=== PATIENT | female | born 1970 | race Caucasian/White ===

== ENCOUNTER 2017-05-07 20:41 | Emergency (ER) | payer SELFPAY ==
[2017-05-07 21:18] LABS: BASOPHILS # (AUTO) 0.1 10^3/uL (0.0-0.1); BASOPHILS % (AUTO) 0.5 %; EOSINOPHILS # (AUTO) 0.2 10^3/uL (0.0-0.7); EOSINOPHILS % (AUTO) 2.5 %; HGB - HEMOGLOBIN 7.9 g/dL (12.0-16.0); LYMPHOCYTES % (AUTO) 20.5 %; MEAN CORPUSCULAR HEMOGLOBIN 18.5 pg (27.0-31.0); MEAN CORPUSCULAR HGB CONC 29.1 g/dL (32.0-36.0); MEAN CORPUSCULAR VOLUME 63.6 fL (81.0-99.0); MEAN PLATELET VOLUME 7.8 fL (7.9-10.8); MONOCYTES # (AUTO) 0.8 10^3/uL (0.0-1.0); MONOCYTES % (AUTO) 8.5 %; NEUTROPHILS # (AUTO) 6.8 10^3/uL (1.5-6.6); RED BLOOD COUNT 4.25 10^6/uL (4.20-5.40); RED CELL DISTRIBUTION WIDTH 19.8 % (12.0-15.0)
[2017-05-07 21:25] LABS: ALBUMIN/GLOBULIN RATIO 0.9 (1.0-2.2); BILIRUBIN,TOTAL < 0.2 mg/dL (0.2-1.0); BUN - BLOOD UREA NITROGEN < 5 mg/dL (6-20); CALCIUM 8.3 mg/dL (8.5-10.3); CARBON DIOXIDE - CO2 23 mmol/L (21-32); CHLORIDE 103 mmol/L (101-111); CREATININE 0.5 mg/dL (0.4-1.0); GFR - MDRD 133 (>89); GLUCOSE 108 mg/dL (70-100); LIPASE 35 U/L (22-51); POTASSIUM 3.3 mmol/L (3.5-5.0); SODIUM 138 mmol/L (135-145); TOTAL PROTEIN 7.4 g/dL (6.7-8.2)
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
[2017-05-07] MEDS: KETOROLAC 60 MG/2 ML VIAL IM STA (22:38)
[2017-05-07] MEDS: ONDANSETRON ODT 4 MG TABLET TL STA (22:38)
[2017-05-07] MEDS ORDERED: KETOROLAC 60 MG/2 ML VIAL ONE (22:40)
[2017-05-07] MEDS ORDERED: ONDANSETRON ODT 4 MG TABLET ONE (22:40)
[2017-05-07] MEDS: ONDANSETRON ODT 4 MG Prepack 2 TL PRN (22:41)
[2017-05-07 22:43] VITALS: BP 134/67
[2017-05-07] MEDS ORDERED: ONDANSETRON ODT 4 MG Prepack 2 TL ONE (22:44)
== END 2017-05-07 22:44 | disposition home or self-care (01) ==
LOC: ED 20:41
DX: F11.23 Opioid dependence with withdrawal (principal); G89.29 Other chronic pain
CPT/HCPCS: 36415; 80053; 83690; 85025; 96372; 99283